=== PATIENT | male | born 1965 | race American Indian/Alaskan Native ===

== ENCOUNTER 2017-11-09 09:23 | Outpatient (CLI) | payer OTHER ==
[2017-11-09] MEDS ORDERED: PROVENTIL IH ONE (10:02)
== END 2017-11-09 09:24 | disposition home or self-care (01) ==
LOC: PF 09:23
PROVIDERS: ATTEND Internal Medicine
DX: J44.9 Chronic obstructive pulmonary disease, unspecified (principal); F17.210 Nicotine dependence, cigarettes, uncomplicated
CPT/HCPCS: 94060; 94640